=== PATIENT | female | born 1985 | race Caucasian/White ===

== ENCOUNTER 2016-09-13 15:31 | Emergency (ER) | payer OTHER ==
[~2016-09-13] VITALS: Ht 160 cm; Wt 69.6 kg
[~2016-09-13 15:31] MED LIST: ADVIL200 M3 PO; ANAPROX DS550 M1 PO; ATARAX,VISTARIL25 MG PO; BENTYL20 MG PO; CIPRO500 MG PO; CIPROFLOXACIN500 M1; ENDOCET 5-3251 EACH; ENDOCET 5-3251 EACH PO; HYDROCODON-ACE1 EAC7 PO; IBUPROFEN800 MG PO; LORTAB 5-325 M1 EACH PO; MACROBID100 MG PO; MOTRIN IB200 MG PO; MOTRIN600 MG PO; MOTRIN800 MG PO; NAPROSYN500 MG PO; NAPROXEN500 MG PO; NO HOME MEDS; NOHOMEMEDS; PERCOCET 5/31 TABLET PO; PHENAZOPYRIDIN200 MG; PROZAC; PROZAC20 M1 PO; PYRIDIUM100 MG PO; TRAZADONE; TYLENOL EXTRA500 MG PO; ULTRAM50 MG PO; ZOFRAN ODT4 MG PO; ZOFRAN ODT8 MG PO; ZOFRAN4 MG PO
[2016-09-13 16:37] LABS: HEMATOCRIT 38.9 % (36.0-46.0); MCH 28.4 PG (29.0-34.0); MCHC 32.9 G/DL (30.0-36.0); MCV 86.4 FL (83-99); MEAN PLAT.VOLUME 9.8 uM^3 (9.5-12.4); PLATELET COUNT 244 K/uL (156-360); RBC DIS.WIDTH-SD 43.5 % (39-53); WHITE BLOOD COUNT 7.3 K/uL (4.1-10.2)
[2016-09-13 16:45] LABS: CHLORIDE 110 mEq/L (99-109); SODIUM 142 mEq/L (136-147)
[2016-09-13 16:48] LABS: GLUCOSE 77 mg/dL (70-99)
[2016-09-13 16:49] LABS: ANION GAP 6 MEQ/L (2-14); TOTAL BILIRUBIN 0.4 mg/dL (0.0-1.0)
[2016-09-13 16:51] LABS: ALKALINE PHOSPHATASE 61 IU/L (3-129); GFR ESTIMATE (CALCULATED) > 59 mL/min/
[2016-09-13 16:52] LABS: UREA NITROGEN (BUN) 13 mg/dL (9-23)
[2016-09-13 17:00] LABS: QUANTITATIVE HCG < 4.0 MIU/ML
[2016-09-13 17:41] LABS: ADD MIUA? NO; BILIRUBIN NEGATIVE; BLOOD NEGATIVE; COLOR YELLOW ((YELLOW)); GLUCOSE (STRIP) NEGATIVE; KETONES NEGATIVE; LEUKOCYTES NEGATIVE; NITRITE NEGATIVE; PH, URINE 6.5 (5-8); PROTEIN (STRIP) 30; UCUL ADDED? NO
[2016-09-13 18:10] LABS: SPECIFIC GRAVITY 1.068 (1.000-1.030)
[2016-09-13] MEDS ORDERED: BENTYL20 MG PO (19:46)
[2016-09-13 20:14] VITALS: BP 106/65
== END 2016-09-13 20:18 | disposition home or self-care (01) ==
LOC: EME 15:31
PROVIDERS: Nurse Practitioner Family
DX: R10.9 Unspecified abdominal pain (principal); R11.0 Nausea; F17.200 Nicotine dependence, unspecified, uncomplicated
CPT/HCPCS: 74177; 80053; 81003; 84702; 85027; 99281; 99284; J1885; J2405; J7030

== ENCOUNTER 2018-04-10 17:59 | Emergency (ER) | payer OTHER ==
[~2018-04-10] VITALS: Ht 160 cm; Wt 79.8 kg
[2018-04-10 18:24] LABS: HEMATOCRIT 42.1 % (36.0-46.0); HEMOGLOBIN 13.9 G/DL (11.9-15.5); MCH 28.7 PG (29.0-34.0); PLATELET COUNT 285 K/uL (156-360); RBC DIS.WIDTH-CV 14.1 % (11.8-14.6); RBC DIS.WIDTH-SD 45.4 % (39-53); RED BLOOD COUNT 4.84 M/uL (3.80-5.20); WHITE BLOOD COUNT 12.1 K/uL (4.1-10.2)
[2018-04-10 18:34] LABS: ALBUMIN 4.5 g/dL (3.2-4.8)
[2018-04-10 18:35] LABS: CHLORIDE 109 mEq/L (99-109); POTASSIUM 3.9 mEq/L (3.7-5.4); SODIUM 143 mEq/L (136-147)
[2018-04-10 18:37] LABS: GLUCOSE 114 mg/dL (70-99); TOTAL PROTEIN 7.2 g/dL (6.4-8.3)
[2018-04-10 18:39] LABS: TOTAL BILIRUBIN 0.3 mg/dL (0.0-1.0)
[2018-04-10 18:40] LABS: ALKALINE PHOSPHATASE 70 IU/L (3-129)
[2018-04-10 18:41] LABS: CREATININE 0.8 mg/dL (0.6-1.3); GFR ESTIMATE (CALCULATED) > 59 mL/min/
[2018-04-10 18:42] LABS: AST (GOT) 12 IU/L (2-34); UREA NITROGEN (BUN) 9 mg/dL (9-23)
[2018-04-10 18:44] LABS: ALT (GPT) 10 IU/L (3-49)
[2018-04-10 18:49] LABS: QUANTITATIVE HCG < 4.0 MIU/ML
[2018-04-10 20:39] LABS: APPEARANCE CLEAR ((CLEAR)); BILIRUBIN NEGATIVE; BLOOD NEGATIVE; COLOR YELLOW ((YELLOW)); GLUCOSE (STRIP) NEGATIVE; KETONES NEGATIVE; LEUKOCYTES NEGATIVE; NITRITE NEGATIVE; PROTEIN (STRIP) NEGATIVE; SPECIFIC GRAVITY 1.027 (1.000-1.030); UCUL ADDED? NO
[2018-04-10] MEDS ORDERED: BENTYL20 MG PO (21:15)
[2018-04-10] MEDS ORDERED: COLACE100 MG PO (21:15)
[2018-04-10] MEDS ORDERED: CIPRO500 MG PO (21:15)
[2018-04-10] MEDS ORDERED: FLAGYL500 MG PO (21:21)
[2018-04-10 21:47] VITALS: BP 99/56
== END 2018-04-10 21:47 | disposition home or self-care (01) ==
LOC: EME 17:59
DX: K52.9 Noninfective gastroenteritis and colitis, unspecified (principal); N93.9 Abnormal uterine and vaginal bleeding, unspecified; Z90.710 Acquired absence of both cervix and uterus; Z90.49 Acquired absence of other specified parts of digestive tract; F17.200 Nicotine dependence, unspecified, uncomplicated
CPT/HCPCS: 74177; 80053; 81003; 84702; 85027; 99281; 99284; J1885; J2405